=== PATIENT | female | born 1975 | race Caucasian/White ===

== ENCOUNTER 2019-09-23 08:45 | Emergency (ER) | payer BC, OTHER ==
[~2019-09-23] VITALS: Ht 152.4 cm; Wt 74.8 kg
[2019-09-23 09:08] VITALS: BP 142/78
[2019-09-23] MEDS ORDERED: ACETAMINOPHEN 500 MG TAB PO ONE (09:45)
== END 2019-09-23 10:25 | disposition home or self-care (01) ==
LOC: ER 08:45 → EDBD 08:45 → ER 10:25
DX: S40.012A Contusion of left shoulder, initial encounter (principal); S60.222A Contusion of left hand, initial encounter; V43.52XA Car driver injured in collision with other type car in traffic accident, initial encounter; Y93.89 Activity, other specified; Y92.488 Other paved roadways as the place of occurrence of the external cause; Y99.8 Other external cause status
CPT/HCPCS: 73130

== ENCOUNTER 2019-09-25 16:20 | Emergency (ER) | payer BC, OTHER ==
[~2019-09-25] VITALS: Ht 162.6 cm; Wt 83.9 kg
[2019-09-25 16:44] VITALS: BP 140/84
== END 2019-09-25 18:09 | disposition home or self-care (01) ==
LOC: ER 16:20
DX: R51 Headache (principal); R42 Dizziness and giddiness
CPT/HCPCS: 70450